=== PATIENT | male | born 1985 | race Caucasian/White ===

== ENCOUNTER 2019-10-22 11:13 | Emergency (ER) | payer OTHER ==
[~2019-10-22] VITALS: Ht 172.7 cm; Wt 113.4 kg
[2019-10-22] MEDS ORDERED: ONDANSETRON HCL/PF 4 MG/2 ML VIAL IVP ONE (12:00)
[2019-10-22] MEDS ORDERED: IV NS 0.9% 1,000 ML BAG IV ONE (12:00)
[2019-10-22] MEDS ORDERED: MORPHINE SULFATE INJ 2 MG/ML DISP.SYRIN IV ONE (12:00)
[2019-10-22] MEDS ORDERED: MORPHINE SULFATE INJ 4 MG/ML DISP.SYRIN ONE (12:13)
[2019-10-22] MEDS ORDERED: ONDANSETRON HCL/PF 4 MG/2 ML VIAL ONE (12:13)
--- NOTE | 2019-10-22 12:15 | NUR ---
patient caem in to the ER c/o "Abdominal Pain started 4days ago went to was refer to go ER". on room air, breathing evenly and unlabored. connected to the monitor and pulse ox, kept comfortable, will continue to monitor accordingly.
[2019-10-22 12:26] LABS: BASOPHILS # (AUTO) 0.1 /CMM (0.0-0.2); EOSINOPHILS % (AUTO) 0.2 % (0.0-6.0); HEMATOCRIT 50 % (39-51); HEMOGLOBIN 17.3 g/dL (13.5-17.5); LYMPHOCYTES # (AUTO) 2.1 /CMM (0.8-4.8); LYMPHOCYTES % (AUTO) 16.2 % (20.0-44.0); MEAN CORPUSCULAR HGB CONC 34 g/dl (31.0-36.0); MEAN CORPUSCULAR VOLUME 89 fL (80-96); MONOCYTES # (AUTO) 0.8 /CMM (0.1-1.30); MONOCYTES % (AUTO) 6.1 % (2.0-12.0); NEUTROPHILS # (AUTO) 9.9 /CMM (1.8-8.9); NEUTROPHILS % (AUTO) 76.5 % (43.0-81.0); PLATELET COUNT (AUTO) 205 /CMM (150-450); RED BLOOD CELL COUNT(AUTO) 5.66 MIL/uL (4.5-6.0)
[2019-10-22 12:40] LABS: CALCIUM, SERUM 8.9 mg/dL (8.5-10.1); POTASSIUM 3.7 mmol/L (3.5-5.1)
[2019-10-22 12:43] LABS: APPEARANCE,URINE Clear (CLEAR); BILIRUBIN,URINE Negative (NEGATIVE); BLOOD, URINE Trace-intact Ery/uL (NEGATIVE); COLOR,URINE Yellow (YELLOW); KETONES,URINE 15 (NEGATIVE); LEUKOCYTE ESTERASE ,URINE Negative (NEGATIVE); NITRITE, URINE Negative (NEGATIVE); PROTEIN,URINE Negative (NEGATIVE); UGLUCOSE Negative (NEGATIVE); UROBILINOGEN,URINE 0.2 EU/dL (0.2)
[2019-10-22 12:44] LABS: BACTERIA,URINE None seen /HPF (None Seen); RBC,URINE 0-2 /HPF (0-2); WBC,URINE 0-2 /HPF (0-3)
[2019-10-22 12:45] LABS: SQUAMOUS EPITHELIAL CELL,UR None Seen /HPF (None Seen)
[2019-10-22 12:45] LABS: ALBUMIN 4.1 g/dL (3.4-5.0); BILIRUBIN,DIRECT 0.2 mg/dL (0.0-0.2); BILIRUBIN,TOTAL 1.1 mg/dL (0.2-1.0); TOTAL PROTEIN, SERUM 8.4 g/dL (6.4-8.2)
[2019-10-22] MEDS ORDERED: IOHEXOL-300 100 ML VIAL IV ONE (12:57)
[2019-10-22] MEDS ORDERED: CT SWABBABLE VALVE TRANS SET 1 EA INFUS.SET MC ONE (12:57)
[2019-10-22] MEDS ORDERED: IV NS 0.9% 250 ML IV ONE (12:57)
--- NOTE | 2019-10-22 13:15 | NUR ---
patient came back from ct
[2019-10-22 14:09] VITALS: BP 140/75
--- NOTE | 2019-10-22 14:09 | NUR ---
Patient discharged to home in stable condition. Written and verbal after care instructions given. Patient verbalizes understanding of instruction.IV removed. Catheter intact and site benign. Pressure and 4x4 applied to site. No bleeding noted.
== END 2019-10-22 14:09 | disposition home or self-care (01) ==
LOC: ER 11:13
DX: K57.32 Diverticulitis of large intestine without perforation or abscess without bleeding (principal); R00.0 Tachycardia, unspecified; Z88.1 Allergy status to other antibiotic agents
CPT/HCPCS: 36415; 71045; 74177; 80048; 80076; 81001; 83690; 85025; 85730; 93005; 96374; 96375; 99284; J2270; J2405; J7030 ×2; J7050; Q9967; 81000-TC

== ENCOUNTER 2019-11-04 22:23 | Emergency (ER) | payer OTHER ==
[~2019-11-04] VITALS: Ht 180.3 cm; Wt 111.1 kg
--- NOTE | 2019-11-04 22:46 | NUR ---
PT PRESENTED TO THE ER WITH A C/O RT FLANK PAIN THAT RADIATES TO THE RT GROIN/SCROTUM. PT AMBULATED IN WITH A SLOW STEADY GAIT. PT IS ALSO C/O NAUSEA. PT STATED THAT HIS PAIN IS SUBSIDING, BUT THE NAUSEA IS NOT.
[2019-11-04] MEDS ORDERED: MORPHINE SULFATE INJ 2 MG/ML DISP.SYRIN IV ONE (23:00)
[2019-11-04] MEDS ORDERED: IV NS 0.9% 1,000 ML BAG IV ONE (23:00)
[2019-11-04] MEDS ORDERED: ONDANSETRON HCL/PF 4 MG/2 ML VIAL IVP ONE (23:00)
[2019-11-04] MEDS ORDERED: ONDANSETRON HCL/PF 4 MG/2 ML VIAL ONE (23:01)
[2019-11-04] MEDS ORDERED: MORPHINE SULFATE INJ 4 MG/ML DISP.SYRIN ONE (23:01)
--- NOTE | 2019-11-04 23:07 | NUR ---
PT AMBULATED TO THE BATHROOM WITH A STEADY GAIT. PT GAVE A URINE SAMPLE. SAMPLE SENT TO LAB.
[2019-11-04 23:09] LABS: BASOPHILS # (AUTO) 0.1 /CMM (0.0-0.2); BASOPHILS % (AUTO) 0.6 % (0.0-2.0); EOSINOPHILS % (AUTO) 0.4 % (0.0-6.0); HEMATOCRIT 49 % (39-51); HEMOGLOBIN 16.8 g/dL (13.5-17.5); LYMPHOCYTES % (AUTO) 13.9 % (20.0-44.0); MEAN CORPUSCULAR HGB CONC 34 g/dl (31.0-36.0); MEAN CORPUSCULAR VOLUME 88 fL (80-96); MONOCYTES # (AUTO) 0.4 /CMM (0.1-1.30); MONOCYTES % (AUTO) 2.8 % (2.0-12.0); NEUTROPHILS # (AUTO) 12.1 /CMM (1.8-8.9); NEUTROPHILS % (AUTO) 82.3 % (43.0-81.0); PLATELET COUNT (AUTO) 226 /CMM (150-450); RED BLOOD CELL COUNT(AUTO) 5.54 MIL/uL (4.5-6.0); WHITE BLOOD COUNT (AUTO) 14.7 K/uL (4.3-11.0)
--- NOTE | 2019-11-04 23:14 | NUR ---
PT REC'D MEDICATION ORDERED.
[2019-11-04 23:17] LABS: CALCIUM, SERUM 9.7 mg/dL (8.5-10.1); CREATININE 1.2 mg/dL (0.6-1.3); POTASSIUM 3.8 mmol/L (3.5-5.1)
[2019-11-04] MEDS ORDERED: KETOROLAC TROMETHAMINE INJ 30 MG/ML VIAL ONE (23:25)
--- NOTE | 2019-11-04 23:28 | NUR ---
PT WAS SCREAMING IN PAIN. MD NOTIFIED. NEW ORDERS GIVEN.
[2019-11-04] MEDS ORDERED: KETOROLAC TROMETHAMINE INJ 30 MG/ML VIAL IV ONE (23:30)
[2019-11-04 23:38] LABS: APPEARANCE,URINE Clear (CLEAR); BILIRUBIN,URINE Negative (NEGATIVE); BLOOD, URINE Large Ery/uL (NEGATIVE); COLOR,URINE Yellow (YELLOW); KETONES,URINE 15 (NEGATIVE); LEUKOCYTE ESTERASE ,URINE Negative (NEGATIVE); NITRITE, URINE Negative (NEGATIVE); PH,URINE 5.5 (5.0-8.0); PROTEIN,URINE 100 mg/dl (NEGATIVE); UGLUCOSE Negative (NEGATIVE); UROBILINOGEN,URINE 0.2 EU/dL (0.2)
--- NOTE | 2019-11-04 23:41 | NUR ---
PT APPEARS TO BE RESTING COMFORTABLY.
[2019-11-04 23:53] LABS: BACTERIA,URINE Rare /HPF (None Seen); RBC,URINE 21-50 /HPF (0-2); SQUAMOUS EPITHELIAL CELL,UR Few /HPF (None Seen); WBC,URINE 0-2 /HPF (0-3)
--- NOTE | 2019-11-04 23:59 | NUR ---
PAU, RADIOLOGY, IS AT THE BEDSIDE. PT IS GOING TO CT VIA [facility].
--- NOTE | 2019-11-05 00:10 | NUR ---
PT RETURNED FROM CT.
--- NOTE | 2019-11-05 01:02 | NUR ---
DR GIRON IS AT THE BEDSIDE SPEAKING TO THE PT.
[2019-11-05] MEDS ORDERED: MORPHINE SULFATE INJ 4 MG/ML DISP.SYRIN ONE (01:16)
--- NOTE | 2019-11-05 01:27 | NUR ---
IV removed. Catheter intact and site benign. Pressure and 4x4 applied to site. No bleeding noted.Patient discharged to home in stable condition. Written and verbal after care instructions given. Patient verbalizes understanding of instruction AND RX. PT AMBULATED OUT WITH A STEADY GAIT.
[2019-11-05 01:28] VITALS: BP 150/87
== END 2019-11-05 01:30 | disposition home or self-care (01) ==
LOC: ER 22:27
DX: N20.0 Calculus of kidney (principal); M10.9 Gout, unspecified; Z88.1 Allergy status to other antibiotic agents
CPT/HCPCS: 36415; 74176; 80048; 81001; 85025; 96374; 96375; 99284; J1885; J2270; J2405; J7030; 81000-TC

== ENCOUNTER 2020-10-29 11:02 | Emergency (ER) | payer OTHER ==
[~2020-10-29] VITALS: Ht 180.3 cm; Wt 117.9 kg
--- NOTE | 2020-10-29 11:15 | NUR ---
BIBS FROM HOME TO ER BED 10. AAOX4. NOT N RESP DISTRESS. AMBULATORY. CAME IN FOR LOWER ABD PAIN X 3 DAYS. 10/11 AGRREVATED BY PRESSURE. PT STATES "FEELS LIKE DIVERTICULITIS I HAD". DENIES N/V/D. AWAITING MD FOR EVAL.
--- NOTE | 2020-10-29 11:17 | NUR ---
AT BEDSIDE FOR EVAL
[2020-10-29] MEDS: IV NS 0.9% 1,000 ML BAG IV ONE (11:33)
[2020-10-29 11:34] LABS: BASOPHILS # (AUTO) 0.1 /CMM (0.0-0.2); BASOPHILS % (AUTO) 0.7 % (0.0-2.0); EOSINOPHILS % (AUTO) 0.3 % (0.0-6.0); HEMATOCRIT 50 % (39-51); HEMOGLOBIN 17.4 g/dL (13.5-17.5); LYMPHOCYTES # (AUTO) 2.6 /CMM (0.8-4.8); LYMPHOCYTES % (AUTO) 21.5 % (20.0-44.0); MEAN CORPUSCULAR HGB CONC 35 g/dl (31.0-36.0); MEAN CORPUSCULAR VOLUME 89 fL (80-96); MONOCYTES % (AUTO) 8.4 % (2.0-12.0); NEUTROPHILS # (AUTO) 8.5 /CMM (1.8-8.9); NEUTROPHILS % (AUTO) 69.1 % (43.0-81.0); PLATELET COUNT (AUTO) 155 /CMM (150-450); WHITE BLOOD COUNT (AUTO) 12.3 K/uL (4.3-11.0)
[2020-10-29 11:35] LABS: BILIRUBIN,URINE SMALL (NEGATIVE); COLOR,URINE YELLOW (YELLOW); LEUKOCYTE ESTERASE ,URINE Negative (NEGATIVE); NITRITE, URINE Negative (NEGATIVE); PROTEIN,URINE Negative (NEGATIVE); UGLUCOSE Negative (NEGATIVE)
[2020-10-29 11:45] LABS: CREATININE 1.1 mg/dL (0.6-1.3); POTASSIUM 3.7 mmol/L (3.5-5.1)
[2020-10-29 11:47] LABS: BACTERIA,URINE Rare /HPF (None Seen); RBC,URINE 0-2 /HPF (0-2); SQUAMOUS EPITHELIAL CELL,UR Rare /HPF (None Seen); WBC,URINE 0-2 /HPF (0-3)
[2020-10-29 11:51] LABS: BILIRUBIN,DIRECT 0.4 mg/dL (0.0-0.2); BILIRUBIN,TOTAL 1.9 mg/dL (0.2-1.0)
[2020-10-29] MEDS ORDERED: LEVOFLOXACIN 750 MG /D5W 150ML 150 ML IV ONE (12:16)
[2020-10-29] MEDS ORDERED: METRONIDAZOLE 500MG/ NS 100ML 100 ML IV ONE (12:16)
[2020-10-29] MEDS: LEVOFLOXACIN 750 MG /D5W 150ML 150 ML IV ONE (12:22)
[2020-10-29] MEDS ORDERED: LEVO500T90 PO (12:41)
[2020-10-29] MEDS ORDERED: METR500T PO (12:41)
[2020-10-29] MEDS: METRONIDAZOLE 500MG/ NS 100ML 100 ML IV ONE (13:51)
--- NOTE | 2020-10-29 14:58 | NUR ---
PT'S IV ATB HAS JUST BEEN COMPLETED. PT HAD BEEN MARKED FOR DC BUT JUST COMPLETED IV
--- NOTE | 2020-10-29 14:59 | NUR ---
Patient discharged to home in stable condition. Written and verbal after care instructions given. Patient verbalizes understanding of instruction. Pt ambulatory with a steady gait
[2020-10-29 15:00] VITALS: BP 143/66
== END 2020-10-29 15:06 | disposition home or self-care (01) ==
LOC: ER 11:05
DX: K57.32 Diverticulitis of large intestine without perforation or abscess without bleeding (principal); M10.9 Gout, unspecified; F12.90 Cannabis use, unspecified, uncomplicated; Z88.1 Allergy status to other antibiotic agents; Z79.899 Other long term (current) drug therapy
CPT/HCPCS: 36415; 74176; 80048; 80076; 81001; 83690; 85025; 96361; 96365; 96367; 99284; J1956; J7030